=== PATIENT | female | born 1950 | race Caucasian/White ===

== ENCOUNTER 2024-10-16 08:23 | Day surgery (SDC) | payer MEDICARE ==
[2024-10-15 09:14] VITALS: BMI 22.2
[2024-10-16] MEDS ORDERED: PROPOFOL 20 ML ONE (08:55)
[2024-10-16] MEDS ORDERED: Lidocaine 1% PF 5 ML VIAL ONE (08:58)
[2024-10-16] MEDS ORDERED: Ondansetron PF 4 MG/2 ML Vial ONE (09:12)
[2024-10-16] MEDS ORDERED: PHENYLEPHRINE-NS 100 MCG/ML 10 ML SYRINGE ONE (09:22)
[2024-10-16] MEDS ORDERED: HYDROcodone/Acetaminophen 5/325 mg Tablet ONE (11:14)
== END 2024-10-16 11:38 | disposition home or self-care (01) ==
LOC: CSHSDC 08:23
PROVIDERS: ATTEND Podiatrist Foot & Ankle Surgery
PROC: 0SG Lower Joints, Fusion (ICD-10-PCS; principal; 2024-10-16)
DX: M21.611 Bunion of right foot (principal); M20.11 Hallux valgus (acquired), right foot; E78.5 Hyperlipidemia, unspecified; Z88.0 Allergy status to penicillin; Z88.8 Allergy status to other drugs, medicaments and biological substances; Z79.899 Other long term (current) drug therapy
CPT/HCPCS: 28750; 73620; C1713 ×8; J0665; J1100; J2250; J2405; J2704; J3010; J3490